=== PATIENT | male | born 1995 | race African-American/Black ===

== ENCOUNTER 2017-09-02 13:15 | Emergency (ER) | payer MEDICAID ==
[~2017-09-02] VITALS: Ht 172.7 cm; Wt 88.0 kg
[2017-09-02 15:30] VITALS: BP 128/85
== END 2017-09-02 17:01 | disposition home or self-care (01) ==
LOC: ER 14:00
DX: M79.604 Pain in right leg (principal)
CPT/HCPCS: 73590; 99284